=== PATIENT | female | born 1950 | race African-American/Black ===

== ENCOUNTER 2017-01-13 12:48 | Day surgery (SDC) | payer MEDICARE, OTHER ==
[~2017-01-13 12:48] MED LIST: ATOR20TA15 PO; BUME1TAB PO; CARV25TA PO; FAMO20TA2 PO; GABA100C4 PO; GLIP5TAB8 PO; LISI40TA PO; METF500T PO; POTA-243 PO
[2017-01-13] MEDS ORDERED: IOHEXOL 350 MG/ML 100 ML BTL (for Cath Lab) OTHER ONE (14:10)
[2017-01-13] MEDS ORDERED: FERR1TAB36 PO (14:29)
[2017-01-13] MEDS ORDERED: VITATAB11 (14:31)
[2017-01-13] MEDS ORDERED: HEPARIN SODIUM - IV 10,000 UNITS/10 ML VIAL ONE (14:33)
[2017-01-13] MEDS ORDERED: NITROGLYCERIN INJ 5 ML ONE (14:33)
[2017-01-13] MEDS ORDERED: HEPARIN-NS/PF INJ 500 ML ONE (14:33)
[2017-01-13] MEDS ORDERED: MIDAZOLAM HCL 2 MG/2 ML VIAL ONE ×2 (14:34→14:56)
[2017-01-13 14:36] LABS: AUTOMATED NEUTROPHIL # 2.8 TH/MM3 (1.8-7.7); BASOPHIL # 0.1 TH/MM3 (0-0.2); BASOPHIL % 1.3 % (0.0-2.0); EOSINOPHIL # 0.3 TH/MM3 (0-0.4); EOSINOPHIL % 5.1 % (0.0-4.0); HEMATOCRIT 34.5 % (35.0-46.0); HEMO FLAGS DIFF FINAL; LYMPH % 45.1 % (9.0-44.0); MEAN CELL VOLUME 83.1 FL (80.0-100.0); MEAN CORPUSCULAR HEMOGLOBIN 27.9 PG (27.0-34.0); MEAN CORPUSCULAR HGB CONC 33.6 % (32.0-36.0); MONO % 6.2 % (0.0-8.0); NEUT % 42.3 % (16.0-70.0); PLATELET COUNT 241 TH/MM3 (150-450); RED BLOOD COUNT 4.15 MIL/MM3 (4.00-5.30); RED CELL DISTRIBUTION WIDTH 16.6 % (11.6-17.2); WHITE BLOOD COUNT 6.6 TH/MM3 (4.0-11.0)
[2017-01-13 14:43] LABS: INTERNATIONAL NORMALIZED RATIO 0.9 RATIO; PROTHROMBIN TIME - PATIENT 10.3 SEC (9.8-11.6)
[2017-01-13 14:57] LABS: BICARBONATE 28.8 MEQ/L (21.0-32.0)
[2017-01-13] MEDS ORDERED: MIDAZOLAM HCL 5 MG/5 ML VIAL ONE (15:13)
[2017-01-13] MEDS ORDERED: diphenhydrAMINE HCL 50 MG/ML VIAL ONE (15:28)
[2017-01-13] MEDS ORDERED: hydrALAZINE HCL 20 MG/ML VIAL ONE (16:24)
[2017-01-13] MEDS ORDERED: CLOPIDOGREL 300 MG TAB ONE (17:28)
[2017-01-13 20:00] VITALS: BP 158/75; PULSE 64; RESP 20; TEMP 98; O2SAT 97
[2017-01-13] MEDS ORDERED: FERROUS SULFATE 325 MG (65 MG ELEMENTAL IRON) TAB PO PRN (20:15)
[2017-01-13] MEDS ORDERED: ONDANSETRON HCL 4 MG/2 ML VIAL IV PRN (20:15)
[2017-01-13] MEDS ORDERED: hydrALAZINE HCL 20 MG/ML VIAL IV PRN (20:15)
[2017-01-13 21:00] VITALS: PULSE 68
[2017-01-13] MEDS ORDERED: TEMAZEPAM 15 MG CAP PO SCH (21:00)
[2017-01-13] MEDS ORDERED: ATORVASTATIN 20 MG TAB PO SCH (21:00)
[2017-01-13] MEDS: GABAPENTIN 100 MG CAP PO SCH (21:16)
[2017-01-13] MEDS: FAMOTIDINE 20 MG TAB PO SCH (21:18)
[2017-01-13] MEDS: CARVEDILOL 12.5 MG TAB PO SCH (21:18)
[2017-01-13] MEDS: BUMETANIDE 1 MG TAB PO SCH (21:19)
[2017-01-13] MEDS: ACETAMINOPHEN/HYDROcodone 325 MG/5 MG TAB PO PRN (21:19)
[2017-01-13 22:00] VITALS: PULSE 63
[2017-01-13 23:00] VITALS: PULSE 65
[2017-01-14] VITALS (12 sets, daily range): BP systolic 148–158; BP diastolic 78–84; PULSE 53–69; RESP 18–22; TEMP 97.9–98.6; O2SAT 96–99
[2017-01-14] MEDS: GABAPENTIN 100 MG CAP PO SCH (08:07)
[2017-01-14] MEDS: FAMOTIDINE 20 MG TAB PO SCH (08:09)
[2017-01-14] MEDS: BUMETANIDE 1 MG TAB PO SCH (08:09)
[2017-01-14] MEDS: CARVEDILOL 12.5 MG TAB PO SCH (08:10)
[2017-01-14] MEDS: ACETAMINOPHEN/HYDROcodone 325 MG/5 MG TAB PO PRN (08:10)
[2017-01-14] MEDS ORDERED: VITAMIN B COMPLEX/VIT C TAB PO SCH (09:00)
[2017-01-14] MEDS ORDERED: LISINOPRIL 20 MG TAB PO SCH (09:00)
[2017-01-14] MEDS ORDERED: POTASSIUM CHLORIDE 10 MEQ CONTROLLED RELEASE TAB PO SCH (09:00)
[2017-01-14] MEDS ORDERED: PNEUMOCOCCAL POLYVALENT INJ 25 MCG/0.5 ML SYR IM ONE (09:00)
[2017-01-14] MEDS ORDERED: glipiZIDE 5 MG TAB PO SCH (09:00)
[2017-01-14] MEDS ORDERED: PLAV75TA29 PO (11:24)
--- NOTE | 2017-01-14 14:42 | MA ---
cc: WING Maryan SELLERS MD DATE: 01/13/2017 DATE OF : 1950 CLINICAL INFORMATION A 66-year-old woman with history of coronary artery disease, also has bilateral lower extremity claudication. Noninvasive study including BEST which is abnormal bilaterally, followed by a CTA of the lower extremities angiogram still significant disease involving bilateral SFA, for that reason the patient is here for lower extremities angiogram and intervention if indicated. PROCEDURE 1. Abdominal aortogram. 2. Bilateral extremities runoff. 3. Percutaneous intervention of the left SFA with balloon angioplasty followed by stenting. PROCEDURE IN DETAIL AND FINDINGS The procedure, indication, risks and benefits are all explained to the patient, all of her questions were answered. Informed consent was obtained. Under the standard sterile condition, lidocaine was infiltrated to the right groin, the right common femoral artery was cannulized using a 5-Tanzanian 10 cm sheath with modified Seldinger technique. A 5-Tanzanian Contac catheter was advanced into the abdominal aorta, abdominal aortogram was taken including the visualization of bilateral renal artery. Then the catheter was pulled back to the distal abdominal aorta, study of angiogram of the left common iliac artery was taken, later using the side port a right common femoral sheath, the right lower extremity angiogram was also taken. After exam with angiogram, we identified a totally occluded mid SFA heavily calcified occlusion. Decision was made to proceed with intervention. The 5-Tanzanian Terumo glide-wire in conjunction with Contac catheter was advanced into the proximal SFA. The 5-Tanzanian sheath was exchanged to a 6-Tanzanian 45 cm sheath ___ up and about the distal aorta bifurcation, further advanced into the left common femoral artery. Multiple attempts to cross the mid left SFA heavily calcified chronic total occlusion without success using multiple wire and supple catheter. Finally we were able to enter a dissection plane, further advance wire into the distal SFA. We were able to reentry the true lumen using a outback reentry device. After the wire was secured into the left popliteal, the upper device was carefully removed. Then we were able to pre-dilate the dissecting track using a 3 x 20 mm coronary balloon, then the entire diseased segment was predilated using a 4 x 120 balloon, followed by a 5 x 120 balloon. Because of the greater than 50% residual stenosis, we decided to deploy a 6 x 120 mm self-expanding stent, post dilated using the 5 x 120 balloon. Repeat angiogram showed excellent angiographic result, no residual stenosis noted. The patient tolerated the procedure well, no complications occurred. The 45 cm sheath was exchanged to a 6-Tanzanian sheath. The sheath was sutured in place, and the patient was transferred to staging area for monitoring. CONCLUSION FINDINGS 1. Abdominal aorta patent with mild plaque, no evidence of aneurysm. 2. Bilateral renal artery patent with no angiographic occlusive disease. 3. Bilateral common iliac arteries, external iliac arteries and common femoral arteries are widely patent. 4. Left superficial femoral artery, patent in the proximal followed by a 100% totally occluded calcified lesion in the midportion, the distal SFA reconstituted via collaterals, followed by a patent left popliteal and two-vessel runoff to the foot. The mid SFA was successfully stented using 6 x 120 mm stent. On the right, the right superficial femoral artery also has a long, heavily calcified stenosis in the midportion. The distal SFA appeared to be patent followed by right popliteal and with two-vessel runoff to the foot. RECOMMENDATIONS The patient will be taking aspirin, Plavix and statin. We will arrange a staged procedure of the right SFA for intervention. Wing Marsha Sellers MD YETELVINA/ELIF /11:52 AM /2:09 PM [email or web address]
[2017-01-26] MEDS ORDERED: HYDR-3533 PO (14:58)
[2017-03-03] MEDS ORDERED: BUME1TAB PO (10:01)
[2017-05-02] MEDS ORDERED: LISI40TA PO (13:33)
== END 2017-01-14 12:13 | disposition home or self-care (01) ==
LOC: HDOC 12:48 → HDIC 12:49 → HCIS 20:32 → HDOC 01-14 12:13
PROVIDERS: ATTEND Internal Medicine Cardiovascular Disease
DX: I70.202 Unspecified atherosclerosis of native arteries of extremities, left leg (principal); I70.0 Atherosclerosis of aorta; I25.10 Atherosclerotic heart disease of native coronary artery without angina pectoris; I10 Essential (primary) hypertension; E11.9 Type 2 diabetes mellitus without complications; I48.92 Unspecified atrial flutter; E78.5 Hyperlipidemia, unspecified
CPT/HCPCS: 36200; 37226; 75625; 75716; 80048; 85002; 85025; 85610; C1725; C1751; C1760; C1769; C1876; C1893; G0269; J0360; J1200; J1644; J2250; J3010; Q9967